=== PATIENT | female | born 1940 | race Caucasian/White ===

== ENCOUNTER 2016-10-07 15:43 | Emergency (ER) | payer OTHER ==
[~2016-10-07] VITALS: Ht 152.4 cm; Wt 80.0 kg
[~2016-10-07 15:43] MED LIST: 1-ME1LIQ PO; BAYE325T3 PO; CYCL-36 PO; FISHCAP PO; GABA300C3 PO; GLUCTAB PO; HYDR12.56 PO; IRON28TA PO; LISI-357 PO; LORTA5 PO; METO25 PO; MULT-65 PO; OMEP20TA PO; SIMV40TA PO; TRAZ100 PO; VITA400D PO; [UNRECOGNIZED DRUG - CODE] PO
[2016-10-07 15:56] VITALS: BP 138/73; PULSE 82; RESP 18; TEMP 98.2; O2SAT 96
--- NOTE | 2016-10-07 18:12 | PD ---
HPI Chief Complaint: Injury Time Seen by Provider: 18:06 Travel History International Travel<30 days: No Contact w/Intl Traveler<30days: No Traveled to known affect area: No History of Present Illness HPI 76-year-old female presents to the emergency Department with complaint of left heel pain after sustaining a fall about 3 weeks ago. Patient presents because the pain is gotten worse. She denies pain while at rest; denies pain at this time. Pain is aggravated with walking and lifting up her foot with walking. Discussed the pain as a shocking, stabbing sensation. She has taken Tylenol with Codeine with good relief of the pain; last taken yesterday. Denies paresthesias, loss of sensation, decreased range of motion to the affected extremity. Has been ambulatory with a cane. Denies fever, chills, nausea, vomiting. He is to penicillin and sulfa. Denies anticoagulants. No other modifying factors or sees signs and symptoms. PFSH Past Medical History Arthritis: Yes Blood Disorders: No Heart Rhythm Problems: No Cancer: No Cardiovascular Problems: Yes High Cholesterol: Yes Diabetes: Yes Patient Takes Glucophage: No (UNKN) Diminished Hearing: No Endocrine: Yes Gastrointestinal Disorders: Yes GERD: Yes Genitourinary: Yes Hypertension: Yes Musculoskeletal: Yes (DJD BILATERAL KNEES;CHRONIC BACK PAIN) Neurologic: No Psychiatric: No Respiratory: Yes Immunizations Current: Yes Tetanus Vaccination: > 5 Years Influenza Vaccination: Yes ?: Not Menopausal: Yes Past Surgical History Abdominal Surgery: Yes (HERNIA REPAIR) Appendectomy: Yes Cholecystectomy: Yes Gynecologic Surgery: Yes (HYSTERECTOMY) Hysterectomy: Yes Joint Replacement: Yes (LUIS KNEE) Pacemaker: No Tonsillectomy: Yes Other Surgery: Yes (UMBILICAL HERNIA REPAIR) Social History Alcohol Use: No Tobacco Use: No (QUIT 48 YRS AGO) Substance Use: No Allergies-Medications (Allergen,Severity, Reaction): Coded Allergies: Penicillin (Verified Allergy, Intermediate, Hives, 10/07/16) Sulfa (Verified Allergy, Intermediate, Hives, 10/07/16) PT TAKES ASPRIN DAILY. NO REACTION. Reported Meds & Prescriptions Reported Meds & Active Scripts Active Active Prescriptions or Reported Medications Unobtainable Review of Systems Except as stated in HPI: all other systems reviewed are Neg Physical Exam Narrative GENERAL: Well-nourished, well-developed elderly, female patient, in no acute distress SKIN: Warm and dry. HEAD: Atraumatic. Normocephalic. EYES: Pupils equal and round. No scleral icterus. No injection or drainage. ENT: Mucosa pink and moist. Airway patent. NECK: Trachea midline. CARDIOVASCULAR: Regular rate. RESPIRATORY: No accessory muscle use. GASTROINTESTINAL: Rounded. MUSCULOSKELETAL: Posterior aspect of the left heel with tenderness on palpation ; without erythema, edema, ecchymosis; left foot is nonedematous or erythematous ; 2+ pedal pulse; sensory intact; no obvious deformity; ankle is without erythema, edema and is with full range of motion. Left lower extremity is supple and non-tense. No obvious deformities. No clubbing. No cyanosis. No edema. NEUROLOGICAL: Awake and alert. Oriented 3. No obvious cranial nerve deficits. Motor grossly within normal limits. Normal speech. PSYCHIATRIC: Appropriate mood and affect; insight and judgment normal. Data Data Last Documented VS Vital Signs Date Time Temp Pulse Resp B/P Pulse Ox O2 Delivery O2 Flow Rate FiO2 10/07/16 15:56 98.2 82 18 138/73 96 Orders Foot, Heel Only ([id number]) (10/07/16 ) [facility] Medical Decision Making Medical Screen Exam Complete: Yes Emergency Medical Condition: Yes Medical Record Reviewed: Yes Differential Diagnosis Fall, heel fracture, bone spur, sprain Narrative Course 76-year-old female with left heel pain after a fall that she sustained 3 weeks ago. She is ambulatory with a cane. The left heel and ankle area are non- edematous and non-erythematous. There is tenderness on palpation to the posterior aspect of the left heel. Left lower extremity supple and non-tense with 2+ pedal pulses and sensory intact. Patient is pain-free while at rest and denies pain at this time. Left heel x-ray ordered. 1853: Left heel x-ray concludes No perceptible calcaneal fracture; 2. Subtalar osteoarthritis; 3. Plantar and posterior calcaneal spurs. Patient has cane for support. Patient to follow up with podiatry. Walker prescribed for home. Patient is medically cleared and stable for discharge. Discussed reasons to return to the emergency department. Instructed patient to follow up with primary care provider. Patient agrees with treatment plan. The patients vital signs are stable and the patient is stable for outpatient follow-up and treatment. Patient discharged home, stable and in no acute distress. Diagnosis Primary Impression: Pain of left heel Referrals: [facility] Primary Care Physician Patient Instructions: General Instructions, Heel Spur (ED) Additional Instructions: Tylenol as directed and as needed for pain Rest, ice, compress, and elevate extremity to decrease pain and inflammation Cane and/or walker for support Avoid aggravating activity; increase activity as tolerated Follow-up with primary care provider Follow-up with podiatry Return to the emergency department immediately with worsening symptoms Med/Other Pt SpecificInfo: Prescription(s) given, No Change to Meds, No Meds Exist/No RX given Scripts Folding Walker/5" Wheels 1 Mis Mis #1 Ea .route As Directed Prov:Flor Dietz 10/07/16 Disposition: 01 DISCHARGE HOME Condition: Stable Flor Dietz Oct 07, 2016 18:12
--- NOTE | 2016-10-07 18:45 | RADHPO ---
EXAM DATE/TIME: 10/07/2016 18:22 [facility] COMPARISON: No previous studies available for comparison. INDICATIONS : Pain from fall. MEDICAL HISTORY : None. SURGICAL HISTORY : None. ENCOUNTER: Initial ACUITY: 3 weeks PAIN SCORE: 4/10 LOCATION: Left posterior heel. FINDINGS: No calcaneal fracture demonstrated. Small heel spur noted. There is also a small enthesophyte at dist al Achilles. There is severe osteophyte is of the subtalar joint, especially the posterior facet. Also severe oste oarthritis seen partly of Lisfranc joint. CONCLUSION: 1. No perceptible calcaneal fracture. 2. Subtalar osteoarthritis. 3. Plantar and posterior calcaneal spurs. Octavio Peña MD on October 07, 2016 at 18:41 Board Certified Radiologist. This report was verified electronically.
[2016-10-07] MEDS ORDERED: MISC-274 (19:00)
== END 2016-10-07 19:11 | disposition home or self-care (01) ==
LOC: PHED 15:43 → PHEFT 19:11
DX: M77.32 Calcaneal spur, left foot (principal); I10 Essential (primary) hypertension; E78.00 Pure hypercholesterolemia, unspecified
CPT/HCPCS: 73650; 99283

== ENCOUNTER 2016-10-19 08:03 | Emergency (ER) | payer OTHER ==
[~2016-10-19] VITALS: Ht 152.4 cm; Wt 76.9 kg
[~2016-10-19 08:03] MED LIST changes: -1-ME1LIQ PO; -BAYE325T3 PO; -CYCL-36 PO; -FISHCAP PO; -GABA300C3 PO; -GLUCTAB PO; -HYDR12.56 PO; -IRON28TA PO; -LISI-357 PO; -LORTA5 PO; -METO25 PO; +MISC-274; -MULT-65 PO; -OMEP20TA PO; -SIMV40TA PO; -TRAZ100 PO; -VITA400D PO; -[UNRECOGNIZED DRUG - CODE] PO
[2016-10-19 08:13] VITALS: BP 143/80; PULSE 101; RESP 16; TEMP 98; O2SAT 97
--- NOTE | 2016-10-19 08:28 | PD ---
HPI Chief Complaint: Fall Time Seen by Provider: 08:24 Travel History International Travel<30 days: No Contact w/Intl Traveler<30days: No Traveled to known affect area: No History of Present Illness HPI 76-year-old female with history of hypertension, diabetes, presents to the ER today because she states that she tripped and fell yesterday onto her back and right shoulder area, complaining of right shoulder pains and back pains. She denies any head injury, loss of consciousness, or any other injuries. Modifying Factors: None Associated Signs & Symptoms: Trip and fall, right shoulder and back pains Risk Factors: None PFSH Past Medical History Hx Anticoagulant Therapy: Yes (325 ASA DAILY) Arthritis: Yes Blood Disorders: No Heart Rhythm Problems: No Cancer: No Cardiovascular Problems: Yes (HTN, CHOL) High Cholesterol: Yes Diabetes: Yes Patient Takes Glucophage: Yes Diminished Hearing: No Endocrine: Yes Gastrointestinal Disorders: Yes GERD: Yes Genitourinary: Yes Hypertension: Yes Musculoskeletal: Yes (DJD BILATERAL KNEES;CHRONIC BACK PAIN) Neurologic: No Psychiatric: No Respiratory: Yes Immunizations Current: Yes ?: Not Menopausal: Yes Past Surgical History Abdominal Surgery: Yes (HERNIA REPAIR) Appendectomy: Yes Cholecystectomy: Yes Gynecologic Surgery: Yes (HYSTERECTOMY) Hysterectomy: Yes Joint Replacement: Yes (LUIS KNEE) Pacemaker: No Tonsillectomy: Yes Other Surgery: Yes (UMBILICAL HERNIA REPAIR) Social History Alcohol Use: No Tobacco Use: No (QUIT 48 YRS AGO) Substance Use: No Allergies-Medications (Allergen,Severity, Reaction): Coded Allergies: Penicillin (Verified Allergy, Intermediate, Hives, 10/19/16) Sulfa (Verified Allergy, Intermediate, Hives, 10/19/16) PT TAKES ASPRIN DAILY. NO REACTION. Reported Meds & Prescriptions Reported Meds & Active Scripts Active Folding Walker/5" Wheels (Device) 1 Mis Mis 1 Ea .ROUTE DIRECTED Reported Hydrochlorothiazide 12.5 Mg Cap 12.5 Mg PO DAILY Aspirin 325 Mg Tab 325 Mg PO DAILY Vitamin D (Cholecalciferol) 1,000 Unit Tab 1,000 Units PO DAILY Multi Vitamin (Multiple Vitamin) 1 Tab Tab 1 Tab PO DAILY Omeprazole 20 Mg Tab 20 Mg PO DAILY Metformin (Metformin HCl) 1,000 Mg Tab 1,000 Mg PO BIDPC With meals Simvastatin 20 Mg Tab 10 Mg PO DAILY Metoprolol Tartrate 25 Mg Tab 25 Mg PO BID Amlodipine (Amlodipine Besylate) 10 Mg Tab 10 Mg PO DAILY Lisinopril 5 Mg Tab 5 Mg PO DAILY Gabapentin 300 Mg Cap 300 Mg PO QID Trazodone (Trazodone HCl) 100 Mg Tab 100 Mg PO HS Review of Systems Except as stated in HPI: all other systems reviewed are Neg Physical Exam Narrative GENERAL: Well-nourished, well-developed pleasant elderly white female patient in mild distress. Awake and oriented 3. SKIN: Warm and dry. HEAD: Normocephalic. EYES: No scleral icterus. No injection or drainage. NECK: Supple, trachea midline. CARDIOVASCULAR: Regular rate and rhythm without murmurs, gallops, or rubs. RESPIRATORY: Breath sounds equal bilaterally. No accessory muscle use. GASTROINTESTINAL: Abdomen soft, non-tender, nondistended. MUSCULOSKELETAL: No cyanosis, or edema. BACK: Mild mid back generalized tenderness without point tenderness, without obvious deformity. No CVA tenderness. EXTREMITIES: No clubbing, cyanosis, or edema. No joint tenderness, effusion, or edema noted. Notable for ecchymosis at the posterior right shoulder. Mild decrease in range of motion secondary to pain. Mildly tender to palpation of the posterior right shoulder. Data Data Last Documented VS Vital Signs Date Time Temp Pulse Resp B/P Pulse Ox O2 Delivery O2 Flow Rate FiO2 10/19/16 08:13 98.0 101 16 143/80 97 Orders Ribs, Bilat(W/Exp Cxr-Min 4vw) (10/19/16 08:24) Spine, Thoracic-Ap/Lat/Sw(3vw) (10/19/16 08:24) Spine, Lumbar Comp W/Obliq (10/19/16 08:24) Shoulder, Limited(2vws) (10/19/16 08:24) Tramadol-Acetamin 37.5-325 Mg (Ultracet (10/19/16 08:30) MDM Medical Decision Making Medical Screen Exam Complete: Yes Emergency Medical Condition: Yes Medical Record Reviewed: Yes Interpretation(s) Last 24 hours Impressions Thoracic Spine X-Ray 10/19/16823 Signed Impressions: Service Date/Time: Wednesday, October 19, 2016 08:47 - CONCLUSION: 1. The 12th thoracic vertebral body appears somewhat decreased in anterior vertebral body height may represent an insufficiency fracture. 2. Widening of the mediastinum superiorly. Consider further evaluation with contrast-enhanced CT to exclude abnormality. Abby Flores MD Shoulder X-Ray 10/19/16823 Signed Impressions: Service Date/Time: Wednesday, October 19, 2016 08:43 - CONCLUSION: No evidence of fracture or dislocation. The high riding humeral head is consistent with a full rotator cuff tear. Abby Flores MD Ribs X-Ray 10/19/16823 Signed Impressions: Service Date/Time: Wednesday, October 19, 2016 08:42 - CONCLUSION: No acute disease. Oliver Collado MD Lumbar Spine X-Ray 10/19/16823 Signed Impressions: Service Date/Time: Wednesday, October 19, 2016 08:49 - CONCLUSION: 1. Moderate compression deformities involving T11, T12 and L1 of indeterminate ages. 2. Degenerative changes and scoliosis of the thoracolumbar spine. 3. Grade I anterolisthesis of L5 in relation to S1. Oliver Collado MD Differential Diagnosis Trip and fall, back injury, shoulder injuryfractures versus contusions versus strain Narrative Course X-rays reveal signs of possible rotator cuff injury of the shoulder, no signs of fractures. The thoracic and lumbar x-rays shows signs of degenerative disc disease and arthritis, and there are some signs that she may have some indeterminate age compression fractures of the thoracic and lumbar spines. No other signs of acute issues were identified. No signs of unstable fractures. Chest x-ray did show some questionable widened mediastinum but patient is not complaining of chest pains currently, had a trip and fall from standing position , and does not have significant mechanism for significant aortic injuries. I do not suspect an aortic tear in this case. Pulses are present and equal bilaterally. She is fairly comfortable except for right shoulder pain. I have notified the patient of the finding on chest x-ray as well and we both agree that she is asymptomatic and off, does not feel that she has an injury there either, and is comfortable with not getting a CAT scan at this time. At this point, my plan would be to release her with symptomatic relief for pain and follow-up to primary care physician and orthopedics. Return for any worsening in symptoms as needed. The plan has discussed with her and she is agreeable. Diagnosis Primary Impression: UNSP INJ MUSC/TEND THE ROTATOR CUFF OF R SHOULDER, INIT Additional Impression: WEDGE COMPRESSION FRACTURE OF UNSP THORACIC VERTEBRA, INIT Med/Other Pt SpecificInfo: Prescription(s) given Scripts Tramadol-Acetaminophen 37.5-325 mg Tab1 Tab PO Q6H PRN (PAIN) #15 TAB Ref 0 Prov:Christie Johnson MD 10/19/16 Disposition: 01 DISCHARGE HOME Condition: Stable Christie Johnson MD Oct 19, 2016 08:28
[2016-10-19] MEDS ORDERED: AMLO10TA2 PO (08:30)
[2016-10-19] MEDS ORDERED: HYDR12.57 PO (08:30)
[2016-10-19] MEDS ORDERED: LISI-519 PO (08:30)
[2016-10-19] MEDS ORDERED: METF1000 PO (08:30)
[2016-10-19] MEDS ORDERED: OMEP20TA PO (08:30)
[2016-10-19] MEDS ORDERED: METO25TA3 PO (08:30)
[2016-10-19] MEDS ORDERED: MULT-135 PO (08:30)
[2016-10-19] MEDS ORDERED: VITA100064 PO (08:30)
[2016-10-19] MEDS ORDERED: SIMV20TA PO (08:30)
[2016-10-19] MEDS ORDERED: traMADol/ACETAMINOPHEN 37.5/325 1 TAB PO ONE (08:30)
[2016-10-19] MEDS ORDERED: TRAZ100T4 PO (08:30)
[2016-10-19] MEDS ORDERED: GABA300C5 PO (08:30)
[2016-10-19] MEDS ORDERED: ASPI325T PO (08:30)
--- NOTE | 2016-10-19 09:22 | RADHPO ---
EXAM DATE/TIME: 10/19/2016 08:42 [facility] COMPARISON: No previous studies available for comparison. INDICATIONS : Fall, bilateral rib pain. MEDICAL HISTORY : None. SURGICAL HISTORY : None. ENCOUNTER: Initial ACUITY: 2 days PAIN SCORE: 4/10 LOCATION: Bilateral ribs FINDINGS: Multiple views of both ribs were performed. There is no evidence of displaced fracture. No destruct jennifer lesions or areas of periosteal thickening are seen. Expiratory view of the chest is negative for pneumothorax. The mediastinal structures are midline. CONCLUSION: No acute disease. Oliver Collado MD on October 19, 2016 at 9:19 Board Certified Radiologist. This report was verified electronically.
--- NOTE | 2016-10-19 09:24 | RADHPO ---
EXAM DATE/TIME: 10/19/2016 08:43 [facility] COMPARISON: CHEST SINGLE AP, May 04, 2013, 20:19. INDICATIONS : Fall, right shoulder pain. MEDICAL HISTORY : None. SURGICAL HISTORY : None. ENCOUNTER: Initial ACUITY: 2 days PAIN SCORE: 6/10 LOCATION: Right shoulder FINDINGS: Two view examination of the right shoulder demonstrates no evidence of fracture or dislocation. The h umeral head is high riding with respect to the adjacent glenoid. Stable moderate right a.c. joint deg enerative change. CONCLUSION: No evidence of fracture or dislocation. The high riding humeral head is consistent wi th a full rotator cuff tear. Abby Flores MD on October 19, 2016 at 9:21 Board Certified Radiologist. This report was verified electronically.
--- NOTE | 2016-10-19 09:25 | RADHPO ---
EXAM DATE/TIME: 10/19/2016 08:49 [facility] COMPARISON: SPINE LUMBAR LTD (AP & LAT), May 18, 2014, 2:00. INDICATIONS: Fall, back pain. MEDICAL HISTORY: None. SURGICAL HISTORY: None. ENCOUNTER: Initial ACUITY: 2 days PAIN SCORE: 8/10 LOCATION: Low back FINDINGS: Severe degenerative changes are noted throughout the thoracolumbar spine. Scoliosis of the thoracolu mbar spine is also noted. There is grade I anterolisthesis of L5 in relation to S1. There is modera te compression deformities involving T11, T12 and L1 of indeterminate ages. CONCLUSION: 1. Moderate compression deformities involving T11, T12 and L1 of indeterminate ages. 2. Degenerative changes and scoliosis of the thoracolumbar spine. 3. Grade I anterolisthesis of L5 in relation to S1. Oliver Collado MD on October 19, 2016 at 9:14 Board Certified Radiologist. This report was verified electronically.
--- NOTE | 2016-10-19 09:28 | RADHPO ---
EXAM DATE/TIME: 10/19/2016 08:47 [facility] COMPARISON: CHEST SINGLE AP, May 04, 2013, 20:19. RIBS BILAT(W PA CXR MIN4VW), October 19, 2016, 8:42. SHOULDE R RIGHT LTD (2VWS), October 19, 2016, 8:43. INDICATIONS : Fall, back pain. MEDICAL HISTORY : None. SURGICAL HISTORY : None. ENCOUNTER: Initial ACUITY: 2 days PAIN SCORE: 5/10 LOCATION: back FINDINGS: AP and lateral views of the thoracic spine demonstrates mild kyphosis. The 12th thoracic vertebral michael dy appears somewhat wedge shaped. There are degenerative disc changes seen to the level of T11 throug h the imaged lumbar spine. The bones are diffusely osteopenic. The AP view of the spine demonstrates abnormal widening of the mediastinum which may be secondary to tortuosity of the thoracic aorta. CONCLUSION: 1. The 12th thoracic vertebral body appears somewhat decreased in anterior vertebral body height may represent an insufficiency fracture. 2. Widening of the mediastinum superiorly. Consider further evaluation with contrast-enhanced CT to e xclude abnormality. Abby Flores MD on October 19, 2016 at 9:23 Board Certified Radiologist. This report was verified electronically.
[2016-10-19] MEDS ORDERED: TRAM-388 PO (09:45)
== END 2016-10-19 09:44 | disposition home or self-care (01) ==
LOC: PHED 08:03
DX: S46.011A Strain of muscle(s) and tendon(s) of the rotator cuff of right shoulder, initial encounter (principal); S29.9XXA Unspecified injury of thorax, initial encounter; I10 Essential (primary) hypertension; E78.00 Pure hypercholesterolemia, unspecified; E11.9 Type 2 diabetes mellitus without complications; K21.9 Gastro-esophageal reflux disease without esophagitis; Z87.891 Personal history of nicotine dependence; Z79.01 Long term (current) use of anticoagulants; W01.0XXA Fall on same level from slipping, tripping and stumbling without subsequent striking against object, initial encounter
CPT/HCPCS: 71111; 72072; 72110; 73030; 99284